=== PATIENT | female | born 1965 | race Caucasian/White ===

== ENCOUNTER → 2016-08-21 | Outpatient (REF) ==
[~2016-08-21] MED LIST: FLEXERIL; GLUCOPHAGE; GLUCOPHAGE500 MG/TAB PO; ROXICODONE 55 MG/TAB PO; TRAMADOL50 MG PO; ULTRAM 50MG TAB50 MG PO; ZOFRAN 4MG T4 MG/TAB PO
== END ==
LOC: ZLAB.WCH 11:16
DX: Z01.89 Encounter for other specified special examinations (principal)